=== PATIENT | female | born 1940 | race Caucasian/White ===

== ENCOUNTER 2022-05-20 13:21 | Emergency (ER) | payer MEDICARE, OTHER ==
[~2022-05-20] VITALS: Ht 149.9 cm; Wt 68.0 kg
== END 2022-05-20 15:05 | disposition home or self-care (01) ==
LOC: ER 13:21
DX: M79.604 Pain in right leg (principal)
CPT/HCPCS: 93971

== ENCOUNTER → 2022-07-29 | Outpatient (CLI) | payer MEDICARE, OTHER | END | disposition home or self-care (01) | LOC: LAB SHORT 12:37 → LAB 12:37 | DX: S81.802A Unspecified open wound, left lower leg, initial encounter (principal) | CPT/HCPCS: 87070; 87075; 87205 ==

== ENCOUNTER → 2022-08-11 | Outpatient (CLI) | payer MEDICARE, OTHER | END | disposition home or self-care (01) | LOC: LAB SHORT 12:37 → LAB 12:37 | DX: L08.9 Local infection of the skin and subcutaneous tissue, unspecified (principal) | CPT/HCPCS: 87070; 87205 ==

== ENCOUNTER → 2022-08-13 | Outpatient (CLI) | payer MEDICARE, OTHER | END | disposition home or self-care (01) | LOC: LAB SHORT 10:20 → LAB 10:20 | DX: L08.0 Pyoderma (principal) | CPT/HCPCS: 87070; 87075; 87077; 87186; 87205 ==

== ENCOUNTER → 2022-12-08 | Outpatient (CLI) | payer MEDICARE, OTHER | END | disposition home or self-care (01) | LOC: LAB 08:54 → LAB SHORT 08:54 | DX: D04.72 Carcinoma in situ of skin of left lower limb, including hip (principal) | CPT/HCPCS: 88305 ==

== ENCOUNTER → 2023-02-02 | Outpatient (CLI) | payer MEDICARE, OTHER | END | disposition home or self-care (01) | LOC: LAB SHORT 17:44 → LAB 17:44 | DX: N39.0 Urinary tract infection, site not specified (principal) | CPT/HCPCS: 87077; 87086; 87186 ==

== ENCOUNTER 2023-02-20 09:25 | Emergency (ER) | payer MEDICARE, OTHER ==
[~2023-02-20] VITALS: Ht 149.9 cm; Wt 67.1 kg
[2023-02-20 09:58] VITALS: BP 171/97
[2023-02-20] MEDS ORDERED: SYNTHROID112 M12 PO (11:28)
[2023-02-20] MEDS ORDERED: CELECOXIB (11:29)
[2023-02-20] MEDS ORDERED: APAP/CODEINE TAB 300 (11:29)
[2023-02-20] MEDS ORDERED: MEMANTINE HCL511 PO (11:29)
[2023-02-20] MEDS ORDERED: SULFAMETHOXAZO1 EAC1 (11:29)
[2023-02-20] MEDS ORDERED: CELE100 PO (12:22)
== END 2023-02-20 12:25 | disposition home or self-care (01) ==
LOC: ER 09:25
DX: M25.562 Pain in left knee (principal); Z91.048 Other nonmedicinal substance allergy status
CPT/HCPCS: 73502; 73562-LT; 93971; 99284-25; A9270

== ENCOUNTER 2023-08-13 17:41 | Inpatient (IN) | payer MEDICARE, OTHER ==
[~2023-08-13] VITALS: Ht 149.9 cm; Wt 67.1 kg
[~2023-08-13 17:41] MED LIST: ACETAMINOPHEN-CODEIN; APAP/CODEINE TAB 300; CALCIUM VITAMIN; CELE100 PO; CELECOXIB; CRANBERRY500 M1 PO; FURO20 PO; HAIR SKIN; MEMANTINE HCL511 PO; MULTIVITAMIN; POTCHL20ER PO; Prinivil10 MG PO; SULFAMETHOXAZO1 EAC1; SYNTHROID112 M12 PO; TURMERIC500 M2 PO; VIT; Voltaren100 GM
[2023-08-13 18:18] LABS: BASOPHILS ABSOLUTE AUTO 0.06 K/mm3 (0.00-0.23); BASOPHILS PERCENT AUTO 1 % (0-2); EOSINOPHILS ABSOLUTE AUTO 0.13 K/mm3 (0.00-0.68); EOSINOPHILS PERCENT AUTO 2 % (0-6); Hematocrit 36.9 % (33.0-51.0); Hemoglobin 12.4 g/dL (11.5-16.0); IMMATURE GRAN ABSOLUTE AUTO 0.01 K/mm3 (0.00-0.10); IMMATURE GRAN PERCENT AUTO 0 % (0-1); LYMPHOCYTES ABSOLUTE AUTO 1.39 K/mm3 (0.84-5.20); LYMPHOCYTES PERCENT AUTO 25 % (21-46); MONOCYTES ABSOLUTE AUTO 0.44 K/mm3 (0.16-1.47); MONOCYTES PERCENT AUTO 8 % (4-13); Mean Corpuscular HGB 31.8 pg (26.0-34.0); Mean Corpuscular HGB Conc 33.6 g/dL (31.5-36.5); Mean Corpuscular Volume 95 fL (80-100); Mean Platelet Volume 9.7 fL (9.1-12.4); NEUTROPHILS ABSOLUTE AUTO 3.55 K/mm3 (1.96-9.15); NEUTROPHILS PERCENT AUTO 64 % (41-73); Platelet Count 223 K/mm3 (150-400); RDW Coefficient Variation 12.9 % (11.7-14.2); RDW Standard Deviation 44.7 fL (35.1-46.3); White Blood Cell Count 5.58 K/mm3 (4.00-11.30)
[2023-08-13 18:37] LABS: Albumin, Blood 3.7 g/dL (3.4-5.0); Albumin/Globulin Ratio 1.5 (0.8-1.8); Bilirubin, Total 0.5 mg/dL (0.1-1.0); Bun/Creatinine Ratio 22.2 (12.0-20.0); Calcium, Blood 8.6 mg/dL (8.5-10.1); Creatinine, Blood 0.99 mg/dL (0.40-1.00); Globulin, Blood 2.4 g/dL (2.2-4.0); Total Protein, Blood 6.1 g/dL (6.4-8.2)
[2023-08-13] MEDS ORDERED: ZESTRIL40 M1 PO (18:47)
[2023-08-13 23:53] VITALS: BP 146/83
[2023-08-13 23:55] LABS: Source, Urine Clean Catch
[2023-08-13 23:59] LABS: Bilirubin, Urine Neg (Neg); Blood, Urine 2+ (Neg); Glucose Qualitative, Urine Neg (Neg); Ketones, Urine Neg (Neg); Leukocyte Esterase, Urine Neg (Neg); Nitrite, Urine Neg (Neg); Protein, Urine 1+ (Neg); Urobilinogen, Urine NORM (Normal)
[2023-08-14] VITALS (7 sets, daily range): BP systolic 113–172; BP diastolic 66–96
[2023-08-14 00:06] LABS: Appearance, Urine Clear (Clear); Color, Urine Yellow (P-Yellow)
[2023-08-14 00:11] LABS: Bacteria Not Seen /hpf; Squamous Epithelial Cells Rare /hpf (Few); White Blood Cells, Urine Not Seen /hpf (0-5)
[2023-08-14 06:17] LABS: CHOL/HDL RATIO 1.9; Cholesterol 116 mg/dL (50-200); HDL Cholesterol 61 mg/dL (>39); LDL/HDL RATIO 0.7; Low Density Lipoprotein Chol 40 mg/dL (0-110); Triglycerides 73 mg/dL (30-160); Very Low Density Lipoprot Chol 14 mg/dL (6-32)
--- NOTE | 2023-08-14 14:30 | NUR ---
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 Pt in no apparent distress upon arrival. Pt awake, alert, oriented x4 when asked direct questions. When undisturbed, pt will ramble and have repetitive, confused lines of speech. Pt has head turned to right side and will not look back midline or to the left. Pt has obvious left side facial droop and left side neglect. When asked to move extremities on left side, pt believes she is doing so but is actually moving the right side extremities. When trying to assess pupils, pt squeezes right eye shut tight and that pupil is unable to be assessed. Pt has no palpable pulse to lower extremities, weak palpable pulse to left wrist and no palpable pulse to right wrist. Monitor shows sinus bradycardia with HR 45-55, SBP 110-120, SPO2 >90% on room air, RR 18. Dr Casas to the room, reports plan to control vital signs with medications, with goal HR <60 and goal SBP <110; plan to attempt transfer to another facility for cardiothoracic surgery. Consult called to Dr Gardner for arterial line placement. Awaiting medications from pharmacy. Handoff report given to DENISSE Enamorado to assume care of pt.
[2023-08-14 15:03] LABS: BASOPHILS ABSOLUTE AUTO 0.04 K/mm3 (0.00-0.23); BASOPHILS PERCENT AUTO 1 % (0-2); EOSINOPHILS ABSOLUTE AUTO 0.05 K/mm3 (0.00-0.68); EOSINOPHILS PERCENT AUTO 1 % (0-6); Hematocrit 34.1 % (33.0-51.0); Hemoglobin 11.3 g/dL (11.5-16.0); IMMATURE GRAN ABSOLUTE AUTO 0.03 K/mm3 (0.00-0.10); IMMATURE GRAN PERCENT AUTO 0 % (0-1); LYMPHOCYTES ABSOLUTE AUTO 0.83 K/mm3 (0.84-5.20); LYMPHOCYTES PERCENT AUTO 11 % (21-46); MONOCYTES ABSOLUTE AUTO 0.52 K/mm3 (0.16-1.47); MONOCYTES PERCENT AUTO 7 % (4-13); Mean Corpuscular HGB 31.8 pg (26.0-34.0); Mean Corpuscular HGB Conc 33.1 g/dL (31.5-36.5); Mean Corpuscular Volume 96 fL (80-100); Mean Platelet Volume 9.9 fL (9.1-12.4); NEUTROPHILS ABSOLUTE AUTO 5.79 K/mm3 (1.96-9.15); NEUTROPHILS PERCENT AUTO 80 % (41-73); Platelet Count 173 K/mm3 (150-400); RDW Coefficient Variation 12.8 % (11.7-14.2); RDW Standard Deviation 45.7 fL (35.1-46.3); Red Blood Cell Count 3.55 M/mm3 (3.80-5.20); White Blood Cell Count 7.26 K/mm3 (4.00-11.30)
[2023-08-14 15:27] LABS: International Normalized Ratio 1.06; Prothrombin Time Results 11.1 Sec (9.7-11.5)
[2023-08-14 15:32] LABS: Albumin, Blood 3.3 g/dL (3.4-5.0); Albumin/Globulin Ratio 1.6 (0.8-1.8); Bilirubin, Total 0.6 mg/dL (0.1-1.0); Bun/Creatinine Ratio 19.2 (12.0-20.0); Calcium, Blood 7.8 mg/dL (8.5-10.1); Creatinine, Blood 0.83 mg/dL (0.40-1.00); Globulin, Blood 2.1 g/dL (2.2-4.0); Potassium, Blood 3.4 mmol/L (3.5-5.5); Total Protein, Blood 5.4 g/dL (6.4-8.2)
--- NOTE | 2023-08-14 16:18 | NUR ---
Pastoral care visitation conducted. Multiple family members were present with the patient all appearing to be appropriately tearful and supportive. Patient's spouse reports that the many family members came from out of town to celebrate the patient's birthday today and didn't expect the turn of events with her health condition. Spouse requested prayer with the family at bedside. Consolatory prayer extended and the spouse proceeded to share about his emotional composure. Empathic listening and pastoral presence extended. Will remain available prospectively for pastoral support.
--- NOTE | 2023-08-14 17:05 | NUR ---
CARE SUMMARY Assumed care of pt at 1430. Bedside report received from Mary Lou SALCEDO. Pt in bed speaking continuously, asking for her son to get her slippers. Pt is able to provide factual answers to questions, but talks in a manner that is not contextually appropriate to currently situation. Pt acknowledges when she is asked to follow a direction, but struggles to demonstrate when is asked of her. No movement to L arm. Gross movement to L leg, significantly weaker than R leg. Movement present to R arm and R leg, but uncoordinated. Sinus bradycardia per monitor. SBPs 120s. Measuring BP on right upper arm. Vitals discussed with Dr Acuña at bedside, who states he is ordering nitroprusside and esmolol and gave specific parameters to keep SBP less than 120 and HR less than 60. Provider stated he would like Dr Gardner to place arterial line and central line and pt is pending transfer to tertiary care. Provider discussed plan of care at bedside with pt's sons and spouse and family opted for patient to transition to comfort measures. This was done before arterial line and central line placed. Dr Acuña placed orders for comfort care. Pt was able to transfer back to room 312, where she was previously assigned. Previous nurse, Karen Cook, reassumed care. Pt taken to room by this RN, departing from ICU at 1625. Attends changed. Family aware of transfer and at bedside.
--- NOTE | 2023-08-14 19:14 | NUR ---
SHIFT SUMMARY: PT IS COMFORT CARE, RESPONDS TO VERBAL STIMULI. ATTENDS IN PLACE. MULTIPLE FAMILY MEMBERS AT BEDSIDE. PT TURNED AND REPOSITIONED Q2. DNR WRISTBAND PLACED. REPORT WAS GIVEN TO [employer] RN.
--- NOTE | 2023-08-14 22:54 | NUR ---
PATIENT VERY UNCOMFORTABLE RECENT REPOSITION, VISULALY IN PAIN AND ANXIOUS MEDICATED PER MAR. FAMILY EDUCATED. PLAN FOR SCAR IN THE ROOM FOR THE NIGHT, PATIENT AFTER MEDICATION ADMINISTRATION RR 16'S, NO LONGER HAVING CHEST PAIN, PATIENT ABLE TO RELAX BROW, RESPIRATIONS EVEN UNLABORED. PATIENT WITH REPOSITION AT APPROXIMATELY 2240, BECAME DUSKY, PALE, AGONAL BREATHING. SCAR BEDIDE, PERFORMANCE MANAGER AND Isiah SHAIKH PCT PRESENT, FAMILY EDUCATED. PATIENT PEACEFUL, NO CHOCKING ON SECRETIONS 2RN VERIFICATION OF TIME OF PASSING AT 2255 PROVIDER NOTIFIED AT 2312 FINAL DISCHARGE BEING PREFORMED BY PERFORMANCE MANAGER "Maco", FAMILY IN THE ROOM
== END 2023-08-14 22:55 | DRG 64 ==
LOC: ER 17:41 → MEDS 17:42 → ICUE 08-14 13:55 → MEDS 08-14 16:25
PROVIDERS: Internal Medicine; Nurse Practitioner Acute Care; Physician Assistant; ADMIT Internal Medicine
DX: I63.9 Cerebral infarction, unspecified (principal); G92.8 Other toxic encephalopathy; I71.010 Dissection of ascending aorta; I71.02 Dissection of abdominal aorta; I77.71 Dissection of carotid artery; I77.79 Dissection of other specified artery; Z66 Do not resuscitate; Z51.5 Encounter for palliative care; I77.72 Dissection of iliac artery; G81.94 Hemiplegia, unspecified affecting left nondominant side; R47.01 Aphasia; E03.9 Hypothyroidism, unspecified; G30.9 Alzheimer's disease, unspecified; F02.80 Dementia in other diseases classified elsewhere, unspecified severity, without behavioral disturbance, psychotic disturbance, mood disturbance, and anxiety; I10 Essential (primary) hypertension; R29.810 Facial weakness; R47.1 Dysarthria and anarthria; R47.81 Slurred speech; I27.20 Pulmonary hypertension, unspecified; G31.89 Other specified degenerative diseases of nervous system; Z88.8 Allergy status to other drugs, medicaments and biological substances; Z91.048 Other nonmedicinal substance allergy status; Z79.890 Hormone replacement therapy; Z79.899 Other long term (current) drug therapy; Z85.820 Personal history of malignant melanoma of skin; Z98.890 Other specified postprocedural states; Z86.73 Personal history of transient ischemic attack (TIA), and cerebral infarction without residual deficits
CPT/HCPCS: 36415; 70450; 70496; 70498; 71275; 74174; 80053; 80061; 81001; 83605; 83615; 84484; 85025; 85610; 85730; 86850; 86900; 86901; 93005; 93010; 93306; 96372; 97116; 97162; 99285-25; A9270; G0378; J1650; J2060; J2270; J7030; J7040; Q9967